=== PATIENT | female | born 1995 | race Two or more races ===

== ENCOUNTER 2020-08-31 12:37 | Emergency (ER) | payer OTHER ==
[~2020-08-31] VITALS: Ht 165.1 cm; Wt 72.0 kg
[2020-08-31 14:12] VITALS: BP 123/71
== END 2020-08-31 14:34 | disposition home or self-care (01) ==
LOC: EMS 12:37
DX: Z11.1 Encounter for screening for respiratory tuberculosis (principal)
CPT/HCPCS: 71045-TC